=== PATIENT | male | born 1990 | race Caucasian/White ===

== ENCOUNTER 2019-06-14 18:29 | Observation (INO) | payer SELFPAY ==
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
[2019-06-14] MEDS ORDERED: NS(*) 0.9% 1000 ML BAG 1,000 ML IV ONE (18:53)
[2019-06-14] MEDS ORDERED: ONDANSETRON 4 MG/2 ML VIAL IVP ONE (18:55)
[2019-06-14] MEDS ORDERED: MORPHINE 4 MG/ML SDV IVP ONE ×2 (19:00→20:45)
[2019-06-14 19:03] LABS: PLATELET COUNT, AUTOMATED 173 K/uL (150-450)
[2019-06-14 19:08] LABS: INR 1.09
[2019-06-14] MEDS ORDERED: DIPHTH/TETANUS/ACEL. PERTUSSIS IM ONLY ONE (19:15)
[2019-06-14] MEDS ORDERED: IOPAMIDOL 76% 100 ML INFUS BTL 100 ML ONE (19:49)
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
[2019-06-14] MEDS ORDERED: ONDANSETRON 4 MG/2 ML VIAL IVP PRN (21:25)
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
[2019-06-14 22:23] VITALS: BP 133/88
[2019-06-14] MEDS: NS(*) 0.9% 1000 ML BAG 1,000 ML IV PRN (23:01)
[2019-06-15] MEDS: MORPHINE 2 MG/ML SYR IVP PRN ×2 (01:06→08:50)
[2019-06-15 08:59] VITALS: BP 137/76
[2019-06-15] MEDS: NS(*) 0.9% 1000 ML BAG 1,000 ML IV PRN (09:27)
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
[2019-06-15] MEDS: APAP/HYDROCODONE 325/7.5 TAB PO PRN ×2 (12:18→16:26)
[2019-06-15 13:30] VITALS: BP 139/90
[2019-06-15 15:57] VITALS: BP 143/101
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
[2019-06-15] MEDS ORDERED: HYDR-654 PO (17:15)
== END 2019-06-15 17:10 | disposition home or self-care (01) ==
LOC: ER 18:32 → MED 21:25 → INTOOBSV 21:25
PROVIDERS: ADMIT Surgery; ATTEND Surgery
DX: S22.41XA Multiple fractures of ribs, right side, initial encounter for closed fracture (principal); S37.091A Other injury of right kidney, initial encounter; V86.59XA Driver of other special all-terrain or other off-road motor vehicle injured in nontraffic accident, initial encounter; R06.00 Dyspnea, unspecified; R31.9 Hematuria, unspecified; S37.041A Minor laceration of right kidney, initial encounter; R91.8 Other nonspecific abnormal finding of lung field; M79.632 Pain in left forearm; F41.9 Anxiety disorder, unspecified; M79.89 Other specified soft tissue disorders
CPT/HCPCS: 12001; 36415; 70450; 71260; 72125; 73090; 73564; 73590; 74177; 81001; 83605; 83690; 85018; 85025; 85610; 85730; 90471; 90715; 96361; 96374; 96375; 96376; 99284; G0378; J2270; J2405; J7030; Q9967; 82040; 82247; 82310; 82374; 82435; 82565; 82947; 84075; 84132; 84155; 84295; 84450; 84460; 84520